=== PATIENT | female | born 1995 | race Caucasian/White ===

== ENCOUNTER 2016-09-06 14:21 | Emergency (ER) | payer BC ==
[2016-09-06 14:26] VITALS: RESP 18
[2016-09-06] MEDS ORDERED: ACETAMINOPHEN 500 MG TAB ONE (14:32)
[2016-09-06] MEDS ORDERED: NS 1,000 ML IV ONE ×2 (14:37→15:49)
[2016-09-06] MEDS ORDERED: IBUPROFEN 200 MG TAB PO ONE (14:41)
[2016-09-06 15:08] LABS: % IMMATURE GRANULYOCYTES 0.4 % (0.0-1.1); ABSOLUTE IMMATURE GRANULOCYTES 0.04 10^3/uL (0.00-0.10); ADD DIFF? NO; ADD MORPH? NO; ADD SCAN? NO; ATYPICAL LYMPHOCYTE FLAG 10 (0-99); FRAGMENT RBC FLAG 0 (0-99); HEMATOCRIT 34.9 % (38.0-47.0); HEMOGLOBIN 11.1 g/dL (12.6-16.3); LEFT SHIFT FLG 0 (0-99); LIPEMIA HEMOLYSIS FLAG 80 (0-99); MEAN CELL HEMOGLOBIN 25.2 pg (27.9-34.1); MEAN CELL HEMOGLOBIN CONCENTR. 31.8 g/dL (32.4-36.7); MEAN CELL VOLUME 79.1 fL (81.5-99.8); MEAN PLATELET VOLUME 10.1 fL (8.7-11.7); PLATELET CLUMPS FLAG 0 (0-99); PLATELET COUNT 221 10^3/uL (150-400); RED BLOOD CELL COUNT 4.41 10^6/uL (4.18-5.33); RED CELL DISTRIBUTION WIDTH 14.6 % (11.5-15.2)
[2016-09-06 15:15] LABS: ANION GAP 13 mEq/L (8-16); CALCIUM 9.3 mg/dL (8.5-10.4); CARBON DIOXIDE 22 mEq/l (22-31); CHLORIDE 101 mEq/L (97-110); CREATININE 0.6 mg/dL (0.6-1.0); GLOMERULAR FILTRATION RATE > 60; GLUCOSE 99 mg/dL (70-100); POTASSIUM 3.6 mEq/L (3.5-5.2); SODIUM 136 mEq/L (134-144)
--- NOTE | 2016-09-06 15:30 | EDPHY ---
H & P Stated Complaint: URI/flu sxs x 4 days; started Z pack yesterday Time Seen by Provider: 09/06/16 14:30 HPI/ROS: CHIEF COMPLAINT: Fever, body aches HISTORY OF PRESENT ILLNESS: The patient is a 21-year-old female who comes to the emergency department complaining of body aches, fevers chills as well as a cough. She states that she began to feel bad on Thursday while she was in [place]. She was seen at the urgent care yesterday and had a rapid strep test done that was negative initially. She was started on azithromycin any ways. She states that she does not feel any better today. She has no other significant past medical history. No diarrhea. No abdominal pain, she denies chest pain. She does have a runny nose. REVIEW OF SYSTEMS: Constitutional: See HPI EENTM: See HPI Respiratory: See HPI Cardiac: denies: chest pain, irregular heart rate, lightheadedness, palpitations Gastrointestinal/Abdominal: denies: abdominal pain, diarrhea, nausea, vomiting, blood streaked stools Genitourinary: denies: dysuria, frequency, hematuria, pain Musculoskeletal: denies: joint pain, muscle pain Skin: denies: lesions, rash, jaundice, bruising Neurological: denies: headache, numbness, paresthesia, tingling, dizziness, weakness Hematologic/Lymphatic: denies: blood clots, easy bleeding, easy bruising Immunologic/allergic: denies: HIV/AIDS, transplant EXAM: GENERAL: Fatigue, well-nourished and in no acute distress. HEAD: Atraumatic, normocephalic. EYES: Pupils equal round and reactive to light, extraocular movements intact, sclera anicteric, conjunctiva are normal. ENT: TMs normal, nares patent, oropharynx clear without exudates. Moist mucous membranes. NECK: Normal range of motion, supple without lymphadenopathy or JVD. LUNGS: Breath sounds clear to auscultation bilaterally and equal. No wheezes rales or rhonchi. HEART: Regular rate and rhythm without murmurs, rubs or gallops. ABDOMEN: Soft, nontender, normoactive bowel sounds. No guarding, no rebound. No masses appreciated. BACK: No CVA tenderness, no spinal tenderness, step-offs or deformities EXTREMITIES: Normal range of motion, no pitting or edema. No clubbing or cyanosis. NEUROLOGICAL: Cranial nerves II through XII grossly intact. Normal speech, normal gait. 5/5 strength, normal movement in all extremities, normal sensation PSYCH: Normal mood, normal affect. SKIN: Warm, dry, normal turgor, no visible rashes or lesions. Source: Patient Exam Limitations: No limitations - Personal History LMP (Females 10-55): 15-21 Days Ago Current Tetanus Diphtheria and Acellular Pertussis (TDAP): Yes - Medical/Surgical History Hx Asthma: No Hx Chronic Respiratory Disease: No Hx Diabetes: No Hx Cardiac Disease: No Hx Renal Disease: No Hx Cirrhosis: No Hx Alcoholism: No Other PMH: neg - Family History Significant Family History: Hypertension - Social History Smoking Status: Never smoked Alcohol Use: Sober Drug Use: None Constitutional: Initial Vital Signs Temperature (C) 38.8 C H 09/06/16 14:22 Heart Rate 118 H 09/06/16 14:22 Respiratory Rate 18 09/06/16 14:22 Blood Pressure 137/71 H 09/06/16 14:22 O2 Sat (%) 96 09/06/16 14:22 O2 Delivery Mode Room Air Allergies/Adverse Reactions: Penicillins Allergy (Verified 09/06/16 15:34) Home Medications: Medication Instructions Recorded Azithromycin [Zithromax] 250 mg PO 09/06/16 Codeine Phosphate/Guaifenesin 120 ml PO 09/06/16 [Codeine-Guaifen 10-100 mg/5 ml] levOFLOXACIN [levAQUIN] 750 mg PO DAILY #10 tab 09/06/16 Medical Decision Making - Diagnostics EKG Interpretation: An EKG obtained and was read and documented in trace view. Please see trace view for full reading and report. Sinus rhythm, no QT prolongation Imaging: X-ray: chest x-ray was obtained. I viewed the images myself on the PACS system. My interpretation of the images is: Right upper and lower lobe infiltrate. The radiologist interpretation is right upper and lower lobe infiltrate. ED Course/Re-evaluation: the patient is febrile. I will treat her with Tylenol and ibuprofen. Obtain a flu swab and called the same see to see about the PCR for her strep screen. The patient's strep PCR is positive. She has left upper and lower lobe infiltrates on chest x-ray here. I will add Levaquin to her regimen. She is not hypoxic. He she is generally healthy. She is not tachycardic. Her lactate is low. Patient has a extremely low PORT score Class 1 with a 0.1% mortality risk. 5:00 p.m. the patient is feeling much better. Her heart rate is 90. She is 96 % on room air. She is afebrile after antipyretics. We discussed indications for returning. Differential Diagnosis: Partial list of the Differential diagnosis considered include but were not limited to; pneumonia, strep throat, influenza and although unlikely based on the history and physical exam, I also considered meningitis, sepsis, urinary tract infection. I discussed these differential diagnoses and the plan with the patient as well as the usual and expected course. The patient understands that the diagnosis is provisional and that in medicine we are not always correct and that further workup is often warranted. Usual and customary warnings were given. All of the patient's questions were answered. The patient was instructed to return to the emergency department should the symptoms at all worsen or return, otherwise to followup with the physician as we discussed. - Data Points Laboratory Results: Laboratory Results 09/06/16 14:45 09/06/16 14:45 09/06/16 09/06/16 09/06/16 16:30 14:45 14:45 WBC 9.95 10^3/uL H 10^3/uL (3.80-9.50) RBC 4.41 10^6/uL 10^6/uL (4.18-5.33) Hgb 11.1 g/dL L g/dL (12.6-16.3) Hct 34.9 % L % (38.0-47.0) MCV 79.1 fL L fL (81.5-99.8) MCH 25.2 pg L pg (27.9-34.1) MCHC 31.8 g/dL L g/dL (32.4-36.7) RDW 14.6 % % (11.5-15.2) Plt Count 221 10^3/uL 10^3/uL (150-400) MPV 10.1 fL fL (8.7-11.7) Neut % (Auto) 85.6 % H % (39.3-74.2) Lymph % (Auto) 8.0 % L % (15.0-45.0) Taney % (Auto) 4.9 % % (4.5-13.0) Eos % (Auto) 0.8 % % (0.6-7.6) Baso % (Auto) 0.3 % % (0.3-1.7) Nucleat RBC Rel Count 0.0 % % (0.0-0.2) Absolute Neuts (auto) 8.51 10^3/uL H 10^3/uL (1.70-6.50) Absolute Lymphs (auto) 0.80 10^3/uL L 10^3/uL (1.00-3.00) Absolute Monos (auto) 0.49 10^3/uL 10^3/uL (0.30-0.80) Absolute Eos (auto) 0.08 10^3/uL 10^3/uL (0.03-0.40) Absolute Basos (auto) 0.03 10^3/uL 10^3/uL (0.02-0.10) Absolute Nucleated RBC 0.00 10^3/uL 10^3/uL (0-0.01) Immature Gran % 0.4 % % (0.0-1.1) Immature Gran # 0.04 10^3/uL 10^3/uL (0.00-0.10) ABG Lactic Acid 1.1 mmol/L mmol/L (0.5-1.6) Sodium Potassium Chloride Carbon Dioxide Anion Gap BUN Creatinine Estimated GFR Glucose Calcium Urine Color PALE YELLOW Urine Appearance HAZY Urine pH 5.0 (5.0-7.5) Ur Specific Brinson 1.004 (1.002-1.030) Urine Protein NEGATIVE (NEGATIVE) Urine Ketones NEGATIVE (NEGATIVE) Urine Blood NEGATIVE (NEGATIVE) Urine Nitrate NEGATIVE (NEGATIVE) Urine Bilirubin NEGATIVE (NEGATIVE) Urine Urobilinogen NEGATIVE EU EU (0.2-1.0) Ur Leukocyte Esterase NEGATIVE (NEGATIVE) Urine RBC NONE SEEN /hpf /hpf (0-3) Urine WBC 3-5 /hpf H /hpf (0-3) Ur Epithelial Cells 1+ /lpf /lpf (NONE-1+) Urine Bacteria 4+ /hpf H /hpf (NONE SEEN) Urine Mucus TRACE /lpf /lpf (NONE-1+) Urine Yeast PRESENT /hpf /hpf (NONE SEEN) Ur Culture Indicated? INDICATED H (NI) Urine Glucose NEGATIVE (NEGATIVE) Influenza Typ A,B (DFA) 09/06/16 09/06/16 14:45 14:40 WBC RBC Hgb Hct MCV MCH MCHC RDW Plt Count MPV Neut % (Auto) Lymph % (Auto) Taney % (Auto) Eos % (Auto) Baso % (Auto) Nucleat RBC Rel Count Absolute Neuts (auto) Absolute Lymphs (auto) Absolute Monos (auto) Absolute Eos (auto) Absolute Basos (auto) Absolute Nucleated RBC Immature Gran % Immature Gran # ABG Lactic Acid Sodium 136 mEq/L mEq/L (134-144) Potassium 3.6 mEq/L mEq/L (3.5-5.2) Chloride 101 mEq/L mEq/L (97-110) Carbon Dioxide 22 mEq/l mEq/l (22-31) Anion Gap 13 mEq/L mEq/L (8-16) BUN 8 mg/dL mg/dL (7-23) Creatinine 0.6 mg/dL mg/dL (0.6-1.0) Estimated GFR > 60 Glucose 99 mg/dL mg/dL (70-100) Calcium 9.3 mg/dL mg/dL (8.5-10.4) Urine Color Urine Appearance Urine pH Ur Specific Brinson Urine Protein Urine Ketones Urine Blood Urine Nitrate Urine Bilirubin Urine Urobilinogen Ur Leukocyte Esterase Urine RBC Urine WBC Ur Epithelial Cells Urine Bacteria Urine Mucus Urine Yeast Ur Culture Indicated? Urine Glucose Influenza Typ A,B (DFA) NEGATIVE FOR FLU (NEGATIVE) Medications Given: Discontinued Medications Sodium Chloride (Ns) 1,000 mls @ 0 mls/hr IV ONCE ONE PRN Reason: Wide Open Stop: 09/06/16 14:38 Last Admin: 09/06/16 14:43 Dose: 1,000 mls Sodium Chloride (Ns) 1,000 mls @ 0 mls/hr IV ONCE ONE PRN Reason: Wide Open Stop: 09/06/16 15:50 Last Admin: 09/06/16 15:51 Dose: 1,000 mls Ibuprofen (Motrin) 800 mg PO EDNOW ONE Stop: 09/06/16 14:42 Last Admin: 09/06/16 14:44 Dose: 800 mg Levofloxacin (Levaquin) 750 mg PO EDNOW ONE PRN Reason: Protocol Stop: 09/06/16 15:29 Last Admin: 09/06/16 15:41 Dose: 750 mg Departure - Departure Disposition: Home, Routine, Self-Care Clinical Impression: Strep throat Pneumonia Qualifiers: Pneumonia type: due to unspecified organism Laterality: right Lung location: unspecified part of lung Qualified Code(s): J18.9 - Pneumonia, unspecified organism Condition: Fair Instructions: Strep Throat (ED), Pneumonia (ED) Referrals: [facility]ERR[facility] [Other] - As per Instructions Prescriptions: levOFLOXACIN [levAQUIN] 750 mg PO DAILY #10 tab
--- NOTE | 2016-09-06 15:47 | CPEKG ---
Heart Rate: 102 RR Interval: 588 P-R Interval: 136 QRSD Interval: 82 QT Interval: 324 QTC Interval: 423 P Ames: 49 QRS Ames: 74 T Wave Ames: 37 EKG Severity - BORDERLINE ECG - EKG Impression: SINUS TACHYCARDIA EKG Impression: BORDERLINE T WAVE ABNORMALITIES Electronically Signed By: Yousuf Guerrero 06-Sep-2016 15:51:01
[2016-09-06 16:37] LABS: COLOR PALE YELLOW; LEUKOCYTE ESTERASE,URINE NEGATIVE (NEGATIVE); NITRITE,URINE NEGATIVE (NEGATIVE)
[2016-09-06 16:42] LABS: BACTERIA 4+ /hpf (NONE SEEN); MUCUS TRACE /lpf (NONE-1+); RBC,URINE NONE SEEN /hpf (0-3); YEAST PRESENT /hpf (NONE SEEN)
[2016-09-06 17:23] VITALS: BP 115/76; PULSE 98; TEMP 98.6; O2SAT 96
== END 2016-09-06 17:23 | disposition home or self-care (01) ==
DX: J18.9 Pneumonia, unspecified organism (principal); J02.0 Streptococcal pharyngitis